=== PATIENT | female | born 1975 | race American Indian/Alaskan Native ===

== ENCOUNTER 2021-09-25 00:42 | Emergency (ER) | payer SELFPAY ==
[2021-09-25 01:06] VITALS: BP 139/80
== END 2021-09-25 02:50 | disposition left against medical advice (07) ==
LOC: ED 00:42
DX: T76.21XA Adult sexual abuse, suspected, initial encounter (principal); Z53.21 Procedure and treatment not carried out due to patient leaving prior to being seen by health care provider; Y92.89 Other specified places as the place of occurrence of the external cause
CPT/HCPCS: 99282